=== PATIENT | female | born 1995 | race Caucasian/White ===

== ENCOUNTER 2025-03-12 15:02 | Emergency (ER) | payer OTHER ==
[~2025-03-12] VITALS: Ht 165.1 cm; Wt 81.3 kg
[2025-03-12] MEDS: NAPROXEN 250 MG TAB PO ONE (16:04)
[2025-03-12 18:24] VITALS: BP 131/67; TEMP 98.1; O2SAT 100
== END 2025-03-12 18:39 | disposition home or self-care (01) ==
LOC: M ED 15:02
DX: S99.912A Unspecified injury of left ankle, initial encounter (principal); Y92.9 Unspecified place or not applicable; Y93.9 Activity, unspecified; Y99.1 Military activity; M25.472 Effusion, left ankle

== ENCOUNTER → 2025-03-19 | Outpatient (CLI) | payer OTHER | LOC: M SOG 06:48 | PROVIDERS: ATTEND Orthopaedic Surgery | DX: M25.572 Pain in left ankle and joints of left foot (principal); Z53.9 Procedure and treatment not carried out, unspecified reason ==

== ENCOUNTER → 2025-04-18 | Outpatient (CLI) | payer OTHER | LOC: M RAD 13:14 | PROVIDERS: ATTEND Orthopaedic Surgery | DX: M93.272 Osteochondritis dissecans, left ankle and joints of left foot (principal); M76.72 Peroneal tendinitis, left leg ==